=== PATIENT | female | born 1945 | race Caucasian/White ===

== ENCOUNTER 2017-05-03 10:14 | Day surgery (SDC) | payer MEDICARE, OTHER ==
[~2017-05-03 10:14] MED LIST: LIDOCAINE HCL 1% MPF SOL ONE; PROPOFOL 500 MG/50 ML EMU IV ONE
[2017-05-03] MEDS ORDERED: ONDANSETRON HCL 4 MG/2 ML SOL ONE (11:19)
[2017-05-03 11:53] VITALS: O2SAT 97
[2017-05-03 12:13] VITALS: BP 128/78; PULSE 67; RESP 20; TEMP 97.2
== END 2017-05-03 12:30 | disposition home or self-care (01) | DRG 951 ==
LOC: SURG 10:14
PROVIDERS: ATTEND Surgery
DX: Z12.11 Encounter for screening for malignant neoplasm of colon (principal); Z80.0 Family history of malignant neoplasm of digestive organs
CPT/HCPCS: J2405; J2001; J2704